=== PATIENT | female | born 1950 | race Caucasian/White ===

== ENCOUNTER 2017-10-18 09:08 | Day surgery (SDC) | payer MEDICARE, OTHER, MEDICAID ==
[2017-10-18] MEDS ORDERED: FENTAnyl 50 MCG/ML VIAL (10:34)
[2017-10-18] MEDS ORDERED: PROPOFOL 20 ML ×2 (10:34→11:46)
== END 2017-10-18 11:11 | disposition home or self-care (01) ==
LOC: GIL 09:08
DX: K64.8 Other hemorrhoids (principal); R19.4 Change in bowel habit; R10.30 Lower abdominal pain, unspecified; R63.4 Abnormal weight loss; Z68.21 Body mass index [BMI] 21.0-21.9, adult; I10 Essential (primary) hypertension
CPT/HCPCS: 45378